=== PATIENT | female | born 1995 | race Hispanic/Latino ===

== ENCOUNTER 2017-12-20 01:27 | Emergency (ER) | payer OTHER ==
[2017-12-20 02:06] VITALS: O2SAT 100
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
[2017-12-20 07:49] VITALS: BP 118/64; PULSE 89; RESP 16; TEMP 97.7
--- NOTE | 2017-12-20 08:52 | RAD ---
Date of service: 12/20/2017 PROCEDURE: Right Knee Radiographs. HISTORY: s/p fall COMPARISON: None. FINDINGS: BONES: Normal. No fracture. JOINTS: Normal. No osteoarthritis. JOINT EFFUSION: None. OTHER FINDINGS: None. IMPRESSION: Normal radiographs of the right knee.
== END 2017-12-20 04:20 | disposition home or self-care (01) ==
LOC: H.ER 01:27
DX: S83.006A Unspecified dislocation of unspecified patella, initial encounter (principal); W06.XXXA Fall from bed, initial encounter; Y92.003 Bedroom of unspecified non-institutional (private) residence as the place of occurrence of the external cause; F90.9 Attention-deficit hyperactivity disorder, unspecified type
CPT/HCPCS: 29530; 73562; 82948; 96372; 99283; J1885